=== PATIENT | female | born 2000 | race Hispanic/Latino ===

== ENCOUNTER 2022-06-28 02:35 | Emergency (ER) | payer OTHER ==
[~2022-06-28] VITALS: Ht 152.4 cm; Wt 86.6 kg
[2022-06-28] MEDS ORDERED: VALTREX1000 MG PO (03:04)
[2022-06-28 03:27] VITALS: BP 139/89
== END 2022-06-28 03:27 | disposition home or self-care (01) ==
LOC: FSED 02:39
DX: B00.1 Herpesviral vesicular dermatitis (principal); L25.9 Unspecified contact dermatitis, unspecified cause
CPT/HCPCS: 99282